=== PATIENT | female | born 1985 | race Caucasian/White ===

== ENCOUNTER 2019-03-01 03:57 | Emergency (ER) | payer SELFPAY ==
--- NOTE | 2019-03-01 06:21 | EDM.PDOC ---
ED HPI GENERAL MEDICAL PROBLEM - General Chief Complaint: General Stated Complaint: DIZZY; NAUSEA; SHARP HEAD PAIN Time Seen by Provider: 03/01/19 04:05 Source of Information: Reports: Patient, Family History Limitations: Reports: No Limitations - History of Present Illness INITIAL COMMENTS - FREE TEXT/NARRATIVE: Abimael comes to [facility] ED following a fall and LOC this early am. She had got up to the kitchen for some water when she became lt headed, and tipped backwards striking the stove as she descended to the floor. Her brother heard the noise and went to investigate, finding her unconscious on the floor. She regained consciousness in about 3 minutes, reporting some headache of the posterior scalp. There was some nausea and emesis, no visual changes, and she was responding appropriately to verbal commands. Current GCS 15 upon arrival to the ED. She has taken no meds. - Related Data Allergies Allergy/AdvReac Type Severity Reaction Status Date / Time No Known Allergies Allergy Verified 03/01/19 05:24 Home Meds: Home Meds NK [No Known Home Meds] 03/01/19 [History] Past Medical History Respiratory History: Reports: Other (See Below) Other Respiratory History: Long time smoker. - Past Surgical History Female Surgical History: Reports: Tubal Ligation Social & Family History - Tobacco Use Smoking Status *Q: Current Every Day Smoker Years of Tobacco use: 22 Packs/Tins Daily: 1 ED ROS GENERAL - Review of Systems Review Of Systems: See Below ED EXAM, GENERAL - Physical Exam Exam: See Below Exam Limited By: No Limitations General Appearance: Alert, WD/WN, No Apparent Distress, Obese Eye Exam: Bilateral Eye: EOMI, Normal Inspection, PERRL Ears: Normal External Exam, Normal TMs Nose: Normal Inspection Throat/Mouth: Normal Inspection, Normal Lips, Normal Oropharynx, Normal Voice, No Airway Compromise Head: Normocephalic, Other (minor posterior occipital scalp tenderness) Neck: Normal Inspection, Supple, Non-Tender, Full Range of Motion Respiratory/Chest: Lungs Clear, Chest Non-Tender Cardiovascular: Regular Rate, Rhythm, No Murmur, No Rub GI/Abdominal: Normal Bowel Sounds, Soft, Non-Tender, No Organomegaly, No Distention, No Mass (Female) Exam: Deferred Rectal (Female) Exam: Deferred Back Exam: Normal Inspection Extremities: Normal Inspection Neurological: Alert, Oriented, CN II-XII Intact, Normal Cognition, Normal Gait, Normal Reflexes, No Motor/Sensory Deficits Psychiatric: Normal Affect, Normal Mood Skin Exam: Warm, Dry, Intact, Normal Color, No Rash Lymphatic: No Adenopathy Course - Vital Signs Text/Narrative:: Abimael remained stable at the ED. The Head CT wo contrast was negative. A minor concussion is suspected. Last Recorded V/S: Last Vital Signs Temp 36.8 C 03/01/19 05:35 Pulse 80 03/01/19 05:35 Resp 18 03/01/19 05:35 BP 96/49 L 03/01/19 05:35 Pulse Ox 98 03/01/19 05:35 - Orders/Labs/Meds Orders: Active Orders 24 hr Category Date Time Status Head wo Cont [CT] Stat Exams 03/01/19 04:33 Taken Labs: Laboratory Tests 03/01/19 03/01/19 Range/Units 04:35 04:35 WBC 6.9 (4.5-12.0) X10-3/uL RBC 4.95 (3.23-5.20) x10(6)uL Hgb 9.2 L (11.5-15.5) g/dL Hct 30.3 (30.0-51.3) % MCV 61.3 L (80-96) fL MCH 18.7 L (27.7-33.6) pg MCHC 30.4 L (32.2-35.4) g/dL RDW 20.3 H (11.5-15.5) % Plt Count 465 H (125-369) X10(3)uL MPV 8.9 (7.4-10.4) fL Neut % (Auto) 52.0 (46-82) % Lymph % (Auto) 29.2 (13-37) % Adams % (Auto) 8.5 (4-12) % Eos % (Auto) 9 H (1.0-5.0) % Baso % (Auto) 1 (0-2) % Neut # (Auto) 3.6 (1.6-8.3) # Lymph # (Auto) 2.0 (0.6-5.0) # Adams # (Auto) 0.6 (0.0-1.3) # Eos # (Auto) 0.6 (0.0-0.8) # Baso # (Auto) 0.1 (0.0-0.2) # Sodium 139 (135-145) mmol/L Potassium 3.5 (3.5-5.3) mmol/L Chloride 103 (100-110) mmol/L Carbon Dioxide 29 (21-32) mmol/L BUN 11 (7-18) mg/dL Creatinine 0.8 (0.55-1.02) mg/dL Est Cr Clr Drug Dosing TNP Estimated GFR (MDRD) > 60 (>60) BUN/Creatinine Ratio 13.8 (9-20) Glucose 93 (80-116) mg/dL Calcium 8.5 L (8.6-10.2) mg/dL Departure - Departure Time of Disposition: 05:20 Disposition: Home, Self-Care 01 Condition: Fair Clinical Impression: Concussion Qualifiers: Encounter type: initial encounter Loss of consciousness presence/duration: with LOC of 30 min or less Qualified Code(s): S06.0X1A - Concussion with loss of consciousness of 30 minutes or less, initial encounter - Discharge Information *PRESCRIPTION DRUG MONITORING PROGRAM REVIEWED*: Not Applicable *COPY OF PRESCRIPTION DRUG MONITORING REPORT IN PATIENT PANTERA: Not Applicable Instructions: Concussion, Adult, [id number] Referrals: PCP,None [Primary Care Provider] - Forms: ED Department Discharge Care Plan Goals: Follow up as needed. - Problem List & Annotations (1) Concussion SNOMED Code(s): 369480076 Code(s): S06.0X9A - CONCUSSION W LOSS OF CONSCIOUSNESS OF UNSP DURATION, INIT Status: Acute Annotation/Comment:: I suggested rest, analgesic of choice, and no driving today. Qualifiers: Encounter type: initial encounter Loss of consciousness presence/duration: with LOC of 30 min or less Qualified Code(s): S06.0X1A - Concussion with loss of consciousness of 30 minutes or less, initial encounter - Problem List Review Problem List Initiated/Reviewed/Updated: Yes - My Orders Last 24 Hours: My Active Orders 03/01/19 04:33 Head wo Cont [CT] Stat - Assessment/Plan Last 24 Hours: My Active Orders 03/01/19 04:33 Head wo Cont [CT] Stat Plan: Follow up with PCP if needed.
== END 2019-03-01 05:45 | disposition home or self-care (01) ==
LOC: FB.ED 03:57
DX: S06.0X1A Concussion with loss of consciousness of 30 minutes or less, initial encounter (principal); F17.210 Nicotine dependence, cigarettes, uncomplicated; W01.198A Fall on same level from slipping, tripping and stumbling with subsequent striking against other object, initial encounter; Y92.090 Kitchen in other non-institutional residence as the place of occurrence of the external cause
CPT/HCPCS: 36415; 70450; 80048; 85025; 99284-25